=== PATIENT | male | born 1945 ===

== ENCOUNTER 2022-03-23 06:52 | Observation (INO) | payer MEDICARE, OTHER ==
[2022-03-23 08:00] VITALS: BMI 46.6
[2022-03-23] MEDS ORDERED: Acetaminophen 650 MG Suppository PR PRN (08:05)
[2022-03-23] MEDS ORDERED: Nitroglycerin 2% Ointment 1 INCH/1 GM Packet TOP PRN (08:05)
[2022-03-23] MEDS ORDERED: Acetaminophen 325 MG TAB PO PRN (08:05)
[2022-03-23] MEDS ORDERED: Aspirin 81 mg Enteric Coated Tablet PO SCH (09:00)
[2022-03-23] MEDS ORDERED: Aspirin Chewable 81 MG TAB PO SCH (09:00)
[2022-03-23] MEDS ORDERED: Clopidogrel Bisulfate 75 MG TAB PO SCH (09:00)
[2022-03-23 09:03] LABS: ALT (SGPT) 22 U/L (8-55); AST (SGOT) 14 U/L (5-34); Albumin 4.5 g/dL (3.4-4.8); Alkaline Phosphatase 97 U/L (40-110); Bilirubin, Direct 0.3 mg/dL (0.1-0.3); Protein, Total 7.3 g/dL (5.8-8.1)
[2022-03-23 09:07] LABS: Troponin I Less than 0.010 ng/mL (< 0.028)
[2022-03-23 09:18] LABS: Magnesium 2.3 mg/dL (1.6-2.6)
[2022-03-23] MEDS: Valsartan 80 MG TAB PO SCH ×2 (11:55→11:58)
[2022-03-23 12:06] LABS: Troponin I Less than 0.010 ng/mL (< 0.028)
[2022-03-23 12:15] VITALS: BP 179/74; TEMP 98
[2022-03-23] MEDS ORDERED: Carvedilol 25 MG TAB PO SCH (17:00)
[2022-03-23] MEDS ORDERED: Atorvastatin Calcium 40 MG TAB PO SCH (21:00)
== END 2022-03-23 15:30 | disposition home or self-care (01) ==
LOC: CSHTELE 06:52 → INTOOBSV 06:52
PROVIDERS: ADMIT Physician Assistant; ATTEND Physician Assistant
DX: R07.9 Chest pain, unspecified (principal); I10 Essential (primary) hypertension; E78.5 Hyperlipidemia, unspecified; I25.10 Atherosclerotic heart disease of native coronary artery without angina pectoris; I49.3 Ventricular premature depolarization; E66.9 Obesity, unspecified; Z68.42 Body mass index [BMI] 45.0-49.9, adult; Z79.02 Long term (current) use of antithrombotics/antiplatelets; Z79.82 Long term (current) use of aspirin; Z79.899 Other long term (current) drug therapy; Z88.1 Allergy status to other antibiotic agents; Z88.8 Allergy status to other drugs, medicaments and biological substances; Z95.5 Presence of coronary angioplasty implant and graft
CPT/HCPCS: 71045; 80053; 80076; 83690; 83735; 84484 ×2; 85025; 93005; 93306; G0378; 36415